=== PATIENT | male | born 1990 | race Caucasian/White ===

== ENCOUNTER 2024-05-21 11:54 | Emergency (ER) | payer BC ==
[2024-05-21] MEDS ORDERED: Lidocaine 1% PF 5 ML VIAL ONE (12:04)
[2024-05-21] MEDS ORDERED: Boostrix 0.5 ML (Tdap) VIAL (>/=7 yrs of age) ONE (12:05)
[2024-05-21] MEDS ORDERED: Bacitracin 1 PK ONE (12:27)
== END 2024-05-21 12:35 | disposition home or self-care (01) ==
LOC: MADERS 11:54
DX: S81.811A Laceration without foreign body, right lower leg, initial encounter (principal); W26.8XXA Contact with other sharp object(s), not elsewhere classified, initial encounter; Z23 Encounter for immunization
CPT/HCPCS: 90471; 90715